=== PATIENT | male | born 1970 | race Caucasian/White ===

== ENCOUNTER 2022-12-22 08:36 | Outpatient (RCR) | payer OTHER, SELFPAY ==
--- NOTE | 2022-12-22 11:12 | PTOPEVAL1 ---
Assessment and note entered by Richard Andino Evaluation Information Assessment Status Evaluation Diagnosis low back pain Onset 12/21/22 Subjective Information Pt. has had on/off back pain for several years. He reports that he initially fell off his boat onto his back. He describes pain on the right side of the low back and can go all the way down the right foot. He reports that he always has some degree of pain. He states that pain is most notable after long distance driving. 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 He states that he has not had MRI or xray. He states that he has done no formal care for the back in the past. He does take Advil every other day which helps to ease his pain. He reports that pain can disrupt his sleep on occasion. He reports that his goal for therapy is to decrease his pain. Reported Pain Level Pain Score 1: Self Report Assessment PT Clinical Summary Pt. is a 52 year old male who enters the clinic with low back pain. He presents with impaired right hip mobility, impaired proximal l.e. strength, impaired gait, and pain. Continued skilled PT is indicated in order to improve these areas to allow the pt. to be able to complete all IADL's with improved comfort. Plan of Care Interventions Electrical Stimulation,Gait Training,Hot Pack/Cold Pack,Manual Therapy,Neuro Re-education,Patient/ Caregiver Educati,Therapeutic Activities, Therapeutic Exercise PT Services Indicated Yes Treatment Frequency and 1x/week x 6 visits Duration These treatments will address the objective and functional deficits as defined above. The patient will be advanced safely and appropriately in order for the patient to progress towards his/her prior level of function. Additional exercises will be introduced and as well as a comprehensive home exercise program upon discharge, if needed, ?to ensure carryover of functional gains achieved in the clinic. This treatment plan has been reviewed and agreement upon by the patient.
--- NOTE | 2022-12-22 11:13 | OPREHPOC ---
Outpatient Therapy Plan of Care This is a Multidisciplinary Plan of Care that may contain components documented by all disciplines (PT, OT, and ST.) PT Problem 1 PT Problem #1 Knowledge Deficit PT Goal 1 Goal Pt. will be independent with a HEP addressing trunk mobility and core strength Target Visit 3 PT Problem 2 PT Problem #2 Impaired Flexibility PT Goal 1 Goal *Increase bilateral HS flexibility by 5 degrees *Increase right hip IR flexibility in prone to 20 degrees *Increase right hip ER flexibility in prone to 50 degrees Target Visit 6 PT Goal 2 Goal Increase flexiblity to allow for improved postural awareness and gait mechanics with IADL's. Target Visit 6 PT Problem 3 PT Problem #3 Impaired Strength PT Goal 1 Goal Pt. will increase right hip abduction strength to 4+/5 or greater to assist with improved gait mechanics and pelvic stability with standing activities. Target Visit 6 PT Problem 4 PT Problem #4 Pain PT Goal 1 Goal Pt. will report pain levels at 2/10 at worst wtih prolonged standing activities. Target Visit 6
== END 2023-01-19 08:38 | disposition home or self-care (01) ==
LOC: CHSPT 08:36
PROVIDERS: PCP Family Medicine; Visit Provider Family Medicine
DX: M54.50 Low back pain, unspecified (principal); G89.29 Other chronic pain
CPT/HCPCS: 97014; 97110; 97112; 97161; G0283

== ENCOUNTER 2022-12-22 08:52 | Outpatient (CLI) | payer OTHER, SELFPAY ==
--- NOTE | ~2022-12-22 | XR_ITS ---
EXAM: XR lumbar spine 2-3V DATE: 12/22/2022 09:15 HISTORY: LBP RADIATES INTO RT HIP,NKI-FALL X 7YEARS AGO . COMPARISON: None available. FINDINGS: 5 nonrib-bearing lumbar-type vertebral bodies. Pedicles intact. Normal vertebral body alig nment. Mild anterior wedge deformity at T11-L1, likely physiologic. Mild disc space narrowing and mar ginal osteophytosis at L4-5 and L5-S1. Moderate lower lumbar facet hypertrophy and sclerosis. IMPRESSION: Mild degenerative disc disease at L4-5 and L5-S1. Multilevel moderate lower lumbar facet arthropathy. Reviewed, dictated and finalized at location K. IMPRESSION: Mild degenerative disc disease at L4-5 and L5-S1. Multilevel modera te lower lumbar facet arthropathy.
[2022-12-22 09:08] LABS: Hematocrit 46.1 % (40.0-54.0); Hemoglobin 16.3 g/dL (14.0-18.0); Mean Corpuscular HGB Conc 35.4 g/dL (32.0-36.0); Mean Corpuscular Hemoglobin 30.2 pg (27.0-31.0); Mean Corpuscular Volume 85.4 fL (78.0-102.0); Mean Platelet Volume 9.5 fl (8.7-11.0); Platelet Count Result 268 K/mm3 (150-420); Red Cell Distribution Width 12.1 % (11.6-14.4); White Blood Count 7.1 K/mm3 (4.8-10.8)
[2022-12-22 10:29] LABS: Alanine Aminotransferase 29 U/L (16-63); Albumin Level 4.1 g/dL (3.4-5.0); Alkaline Phosphatase 93 U/L (46-116); Anion Gap 9 mmol/L (8-16); Aspartate Amino Transferase 15 U/L (15-37); Bilirubin,Total 0.5 mg/dL (0.00-1.00); Blood Urea Nitrogen 12 mg/dL (7-18); Calcium 9.1 mg/dL (8.5-10.1); Carbon Dioxide 27 mmol/L (21-32); Chloride 101 mmol/L (98-108); Cholesterol 272 mg/dL (0-200); Estimated Glomerular Filt Rate > 60; Glucose 337 mg/dL (70-99); HDL Direct 38 mg/dL (40-60); Osmolality Calculated 296 mOsm/kg (285-295); Potassium 4.3 mmol/L (3.5-5.1); Sodium 137 mmol/L (136-145); Total Protein 7.1 g/dL (6.4-8.2)
[2022-12-22 10:33] LABS: LDL Cholesterol Calculated 116 mg/dL (<130); Triglycerides 588 mg/dL (0-150)
[2022-12-22 10:34] LABS: LDL Cholesterol Direct 121 mg/dL (0-130)
[2022-12-22 13:54] LABS: Hemoglobin A1C 11.6 % (<5.7)
== END 2022-12-22 08:53 | disposition home or self-care (01) ==
PROVIDERS: PCP Family Medicine; Visit Provider Family Medicine
DX: Z00.00 Encounter for general adult medical examination without abnormal findings (principal); E11.9 Type 2 diabetes mellitus without complications; G89.29 Other chronic pain; M54.50 Low back pain, unspecified; M51.36 Other intervertebral disc degeneration, lumbar region; M12.88 Other specific arthropathies, not elsewhere classified, other specified site
CPT/HCPCS: 36415; 72100; 80053; 80061; 83036; 83721; 85027

== ENCOUNTER 2024-10-25 15:40 | Outpatient (CLI) | payer OTHER, SELFPAY ==
[2024-10-25 15:58] LABS: Basophils Absolute Auto 0.05 K/mm3 (0.00-0.10); Basophils Percent Auto 0.5 % (0.0-1.0); Eosinophils Absolute Auto 0.08 K/mm3 (0.02-0.50); Eosinophils Percent Auto 0.8 % (1.0-6.0); Hematocrit 44.4 % (40.0-54.0); Hemoglobin 15.3 g/dL (14.0-18.0); Immature Granulocyte Absolute 0.04 K/mm3 (0.00-0.00); Immature Granulocyte Percent A 0.4 % (0.0-0.0); Lymphocytes Absolute Auto 2.98 K/mm3 (1.10-4.50); Lymphocytes Percent Auto 29.9 % (18.0-42.0); Mean Corpuscular HGB Conc 34.5 g/dL (32-36); Mean Corpuscular Hemoglobin 30.3 pg (27.0-31.0); Mean Corpuscular Volume 87.9 fL (78.0-102.0); Mean Platelet Volume 9.7 fl (8.7-11.0); Monocytes Absolute Auto 0.65 K/mm3 (0.10-0.90); Monocytes Percent Auto 6.5 % (2.0-11.0); Neutrophils Absolute Auto 6.15 K/mm3 (1.70-7.20); Neutrophils Percent Auto 61.9 % (50.0-70.0); Platelet Count Result 242 K/mm3 (150-420); Red Blood Count 5.05 M/mm3 (4.70-6.10); Red Cell Distribution Width 11.8 % (11.6-14.4)
--- OUTSIDE RECORDS SUMMARY | 2024-10-25 16:20 | XMS_ITS | Clinical Summary ---
Author Organization [facility] Address [address] [place] [address] Care Team Providers Care Adjunct Faculty Mathematics Department Name Role Phone Unavailable Primary Care Provider Unavailabl e Source Comments [facility],non-owned Affiliates and Associated Physician Practices is amultiple site organization consisting of ambulatory clinics and hospital sitesin [place], [place], [place] and [place]. This disclosure is being madepursuant to the Care Everywhere program and may not contain all information available regarding this patient. Last updated 18.[facility] Allergies No known active allergies Immunizations Name Administration Dates Next Due INFLUENZA VACCINE, QUADR. (F LUZONE; FLULAVAL; FLUARIX; AFLURIA QUADRIVALENT; 6MO+), 0.5 ML (IIV4) 05/27/2020 Social History Tobacco Use Types Packs/Day Years Used Date Smoking Tobacco: Never Assessed Sex and Gender Information Value Date Recorded Sex Assigned at Not on file Gender Identity Not on file Sexual Orientation Not on file Plan of Treatment Health Maintenance Due Date Last Done Comments COLOGUARD (AGES 45-75) - COL ON CA SCREENING 1968 COLON MONITORING 1968 COLONOSCOPY - COLON CA SCREENING 1968 CT COLONOGRAPHY - COLON CA SCREENING 1968 Colorectal Cancer Screening 1968 FIT - COLON CA SCREENING 1968 FLEX SIG - COLON CA SCREENING 1968 LIPID TESTING 1968 HIV SCREENING 01/15/1983 HEPATITIS C SCREENING 01/11/1986 DTAP/TDAP/TD VACCINES (1 - Tdap) 01/15/1987 HEPATITIS B VACCINE (1 of 3 - 19+ 3-dose series) 01/15/1987 PNEUMOCOCCAL VACCINE 50+ (1 of 1 - PCV) 01/15/2018 ZOSTER VACCINE (1 of 2) 01/15/2018 COVID-19 VACCINE (2023-2 5 season) 2024 INFLUENZA VACCINE (#1) 2024 05/27/2020 DEPRESSION SCREENING 08/01/2024 HIB VACCINE Aged Out No longer eligi ble based on patient's age to complete this topic HPV VACCINE Aged Out No longer eligi ble based on patient's age to complete this topic MENINGOCOCCAL (Group B) VACC INE SHARED DECISION-MAKING Aged Out No longer eligibl e based on patient's age to complete this topic MENINGOCOCCAL GROUPS A/C/Y/W VACCINE Aged Out No longer eligible b ased on patient's age to complete this topic PNEUMOCOCCAL VACCINE Aged Out No long er eligible based on patient's age to complete this topic
--- OUTSIDE RECORDS SUMMARY | 2024-10-25 16:20 | XMS_ITS | Clinical Summary ---
Author Organization 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 [employer] Pulse 85 09/24/2016 2:46 PM [employer] Temperature - - Respiratory Rate - - Oxygen Saturation - - Inhaled Oxygen Concentration - - Weight 129.3 kg (285 lb) 09/24/2016 2:46 PM [employer] Height 175.3 cm (5' 9 ) 09/24/2016 2:46 PM [employer] Body Mass Index 42.09 09/24/2016 2:46 PM [employer] Plan of Treatment Health Maintenance Due Date Last Done Comments Colorectal Cancer Screening Colonoscopy (10 Years) 1968 Annual Physical 01/15/1971 Hepatitis C 01/15/1986 DTaP, Tdap and Td Vaccines ( 1 - Tdap) 01/15/1987 Hepatitis B Vaccines (1 of 3 - 19+ 3-dose series) 01/15/1987 Zoster Vaccines (1 of 2) 01/15/2018 COVID-19 Vaccine (2023-2 5 season) 2024 Influenza Adult (#1) 2024 Meningococcal B Vaccine Aged Out No l onger eligible based on patient's age to complete this topic Meningococcal Vaccine Aged Out No jc joy eligible based on patient's age to complete this topic Pneumococcal Vaccine: Pediat rics (0 to 5 Years) and At-Risk Patients (6 to 64 Years) Aged Out No longer eligible b ased on patient's age to complete this topic RSV Immunizations Under 20 Months Aged Out No longer eligible based on patient's age to complete this topic
[2024-10-25 16:35] LABS: Creatinine Urine 13.86 mg/dL (40-278); MALB Creatinine Ratio 93.7 mg/g (0-30); Microalbumin Urine Random < 13.0 mg/L
[2024-10-25 16:41] LABS: Alanine Aminotransferase 43 U/L (16-63); Albumin Level 4.2 g/dL (3.4-5.0); Alkaline Phosphatase 68 U/L (46-116); Anion Gap 8 mmol/L (4-12); Aspartate Amino Transferase 16 U/L (15-37); Bilirubin,Total 0.5 mg/dL (0.00-1.00); Blood Urea Nitrogen 17 mg/dL (7-18); Calcium 9.3 mg/dL (8.5-10.1); Carbon Dioxide 29 mmol/L (21-32); Chloride 101 mmol/L (98-108); Cholesterol 235 mg/dL (0-200); Estimated Glomerular Filt Rate > 60; Glucose 148 mg/dL (70-99); HDL Direct 45 mg/dL (40-60); LDL Cholesterol Calculated 123 mg/dL (<130); Osmolality Calculated 290 mOsm/kg (285-295); Potassium 3.9 mmol/L (3.5-5.1); Sodium 138 mmol/L (136-145); Total Protein 7.3 g/dL (6.4-8.2); Triglycerides 335 mg/dL (0-150)
== END 2024-10-25 15:41 | disposition home or self-care (01) ==
PROVIDERS: PCP Family Medicine; Visit Provider Family Medicine
DX: I10 Essential (primary) hypertension (principal); E11.9 Type 2 diabetes mellitus without complications
CPT/HCPCS: 36415; 80053; 80061; 82043; 85025